=== PATIENT | female | born 1950 | race Caucasian/White ===

== ENCOUNTER → 2017-12-03 | Outpatient (CLI) | payer OTHER ==
[~2017-12-03] MED LIST: ISOVUE-370 50ML VIAL IV ONE; ROPI4TAB8 PO; ROTI1PAT10 TD; VALS80TA29 PO
== END | disposition home or self-care (01) ==
LOC: RAH 09:58
PROVIDERS: ATTEND Internal Medicine Gastroenterology
DX: K44.9 Diaphragmatic hernia without obstruction or gangrene (principal); M47.895 Other spondylosis, thoracolumbar region; R63.4 Abnormal weight loss
CPT/HCPCS: 71046; 74178; Q9967

== ENCOUNTER 2017-12-18 06:56 | Day surgery (SDC) | payer OTHER ==
[~2017-12-18] VITALS: Ht 165.1 cm; Wt 72.8 kg
[~2017-12-18 06:56] MED LIST changes: -ISOVUE-370 50ML VIAL IV ONE; -ROTI1PAT10 TD; +SODIUM CHLORIDE 0.9% 1000ML 1,000 ML IV ONE
[2017-12-18 08:04] VITALS: BP 138/77
[2017-12-18] MEDS ORDERED: PROPOFOL 10 MG/ML 20ML VIAL IV ONE (08:59)
[2017-12-18 09:15] VITALS: BP 80/45
== END 2017-12-18 09:50 | disposition home or self-care (01) ==
LOC: ENDO 06:56 → DAH 06:56 → ENDO 09:50
PROVIDERS: ATTEND Internal Medicine Gastroenterology
DX: K22.70 Barrett's esophagus without dysplasia (principal); K44.9 Diaphragmatic hernia without obstruction or gangrene; K57.30 Diverticulosis of large intestine without perforation or abscess without bleeding; D64.9 Anemia, unspecified; E07.9 Disorder of thyroid, unspecified; I10 Essential (primary) hypertension
CPT/HCPCS: 43239; 88305; 93005; A4606; J2704; J7030

== ENCOUNTER → 2018-02-12 | Outpatient (CLI) | payer OTHER ==
[~2018-02-12] MED LIST changes: -SODIUM CHLORIDE 0.9% 1000ML 1,000 ML IV ONE; -VALS80TA29 PO; +VALS80TA30 PO
[2018-02-12 10:18] LABS: BASOPHILS % (AUTO) 0.6 % (0.0-5.0); EOSINOPHILS % (AUTO) 0.9 % (0.0-8.0); HEMATOCRIT 40.2 % (36-48); LYMPHOCYTES % (AUTO) 24.1 % (21.0-51.0); MEAN CORPUSCULAR HGB CONC 33.2 g/dL (32.0-36.0); MEAN CORPUSCULAR VOLUME 90.4 fL (79-99); MONOCYTES % (AUTO) 8.6 % (3.0-13.0); NEUTROPHILS % (AUTO) 65.8 % (40.0-77.0); PLATELET COUNT (AUTO) 201 K/uL (130-400); RED BLOOD CELL COUNT(AUTO) 4.45 MIL/uL (4.00-5.50); RED CELL DISTRIBUTION WIDTH 13.5 % (11.0-15.5)
[2018-02-12 10:29] LABS: INR 0.98 (0.85-1.15); PARTIAL THROMBOPLASTIN TIME 26.8 SEC (26.3-35.5); PROTHROMBIN TIME 10.3 SEC (9.6-11.6)
[2018-02-12 10:32] LABS: ALBUMIN 3.6 g/dL (3.5-5.0); BILIRUBIN,TOTAL 0.3 mg/dL (0.2-1.0); CREATININE 1.1 mg/dL (0.5-1.5); POTASSIUM 3.6 mmol/L (3.5-5.1); TOTAL PROTEIN, SERUM 7.7 g/dL (6.0-8.3)
== END | disposition home or self-care (01) ==
LOC: RAH 09:43
PROVIDERS: ATTEND Internal Medicine
DX: Z01.811 Encounter for preprocedural respiratory examination (principal); I10 Essential (primary) hypertension; N18.2 Chronic kidney disease, stage 2 (mild); E78.2 Mixed hyperlipidemia
CPT/HCPCS: 36415; 71046; 80053; 85025; 85610; 85730

== ENCOUNTER 2018-02-19 06:28 | Day surgery (SDC) | payer OTHER ==
[2018-02-18 16:28] VITALS: BP 157/78
[~2018-02-19] VITALS: Ht 168.9 cm; Wt 72.6 kg
[2018-02-19] VITALS (14 sets, daily range): BP systolic 104–153; BP diastolic 48–95
[2018-02-19] MEDS ORDERED: LACTATED RINGERS 1000ML 1,000 ML IV ONE (07:28)
[2018-02-19] MEDS ORDERED: CLINDAMYCIN 900 MG/D5% WATER 50 ML IV ONE (07:28)
[2018-02-19] MEDS ORDERED: MIDAZOLAM HCL 1 MG/ML 2ML VIAL ONE (07:42)
[2018-02-19] MEDS ORDERED: PROPOFOL 10 MG/ML 20ML VIAL IV ONE (07:42)
[2018-02-19] MEDS ORDERED: FENTANYL CITRATE PF 50 MCG/1 ML 2ML VIAL ONE (07:42)
[2018-02-19] MEDS ORDERED: CEFAZOLIN SODIUM 1 GM VIAL IVP ONE (08:00)
[2018-02-19] MEDS ORDERED: WATER FOR INJECTION,STERILE 20 ML VIAL IJ ONE (08:00)
[2018-02-19] MEDS ORDERED: ROPIVACAINE 0.5% 5MG/ML 30ML IJ ONE (08:17)
[2018-02-19] MEDS ORDERED: EPINEPHRINE 1 MG/ML 30ML VIAL IJ ONE (09:43)
[2018-02-19] MEDS ORDERED: EPHEDRINE SULFATE 50 MG/ML AMPULE ONE (09:45)
[2018-02-19] MEDS ORDERED: ONDANSETRON HCL MDV 20ML 2 MG/ML VIAL ONE (11:55)
[2018-02-19] MEDS ORDERED: NEOSTIGMINE 5MG/5ML SYR IV ONE (11:55)
[2018-02-19] MEDS ORDERED: GLYCOPYRROLATE 0.2 MG/ML 5 ML VIAL ONE (11:55)
[2018-02-19] MEDS ORDERED: ROCURONIUM BROMIDE 10MG/1ML 5ML VL ONE (11:55)
[2018-02-19] MEDS ORDERED: DEXAMETHASONE SOD PHOSPHATE 10MG/ML 1ML VIAL ONE (11:55)
[2018-02-19] MEDS ORDERED: MEPERIDINE-PF 25 MG/ML SYG ONE (12:24)
== END 2018-02-19 15:00 | disposition home or self-care (01) ==
LOC: DAH 06:28
PROVIDERS: ATTEND Orthopaedic Surgery
DX: M75.101 Unspecified rotator cuff tear or rupture of right shoulder, not specified as traumatic (principal); M75.41 Impingement syndrome of right shoulder; M19.011 Primary osteoarthritis, right shoulder; M94.211 Chondromalacia, right shoulder; Z90.710 Acquired absence of both cervix and uterus; Z98.890 Other specified postprocedural states; Z79.899 Other long term (current) drug therapy; Z88.0 Allergy status to penicillin; Z88.8 Allergy status to other drugs, medicaments and biological substances; I10 Essential (primary) hypertension; K21.9 Gastro-esophageal reflux disease without esophagitis
CPT/HCPCS: 29824; 29826; 29827; A4565; A4649 ×5; A4930; A6204; C1763; J0171; J1100; J2175; J2250; J2704; J2710; J2795; J3010; J3490 ×4; J7030; J7120

== ENCOUNTER → 2019-02-22 | Outpatient (CLI) | payer OTHER | END | disposition home or self-care (01) | LOC: RAH 12:12 | PROVIDERS: ATTEND Internal Medicine | DX: M71.21 Synovial cyst of popliteal space [Baker], right knee (principal) | CPT/HCPCS: 93971 ==

== ENCOUNTER → 2019-03-01 | Outpatient (CLI) | payer OTHER ==
[~2019-03-01] MED LIST changes: +IOHEXOL 350 MG/ML 100ML INFUS..BTL IV ONE
== END | disposition home or self-care (01) ==
LOC: RAH 08:31
PROVIDERS: ATTEND Internal Medicine Gastroenterology
DX: K44.9 Diaphragmatic hernia without obstruction or gangrene (principal); Z90.710 Acquired absence of both cervix and uterus
CPT/HCPCS: 74178; Q9967

== ENCOUNTER → 2025-06-27 | Outpatient (CLI) | payer MEDICARE ==
[~2025-06-27] MED LIST changes: -IOHEXOL 350 MG/ML 100ML INFUS..BTL IV ONE
[2025-06-27 09:38] LABS: NUCLEATED RED BLOOD CELLS 0.0 % (0.0-0.19); PLATELET COUNT (AUTO) 184.0 K/uL (130-400); RED BLOOD CELL COUNT(AUTO) 3.96 MIL/uL (4.00-5.50); RED CELL DISTRIBUTION WIDTH 13.4 % (11.0-15.5); WHITE BLOOD COUNT (AUTO) 5.1 K/uL (4.8-10.8)
[2025-06-27 09:52] LABS: ASPARTATE AMINOTRANSFERASE 23.0 U/L (10-37); CREATININE 1.4 mg/dL (0.5-1.0); GLOMERULAR FILTR. RATE CALC 39.0 mL/min (>90); GLUCOSE,RANDOM 89.0 mg/dL (70-105); SODIUM SERUM 142.0 mmol/L (136-145); TOTAL PROTEIN, SERUM 7.6 g/dL (6.0-8.3); UREA NITROGEN, BLOOD 19.0 mg/dL (7-18)
--- NOTE | 2025-06-27 10:10 | HMCIMG ---
CHEST 2VWS REASON: PRE OP COMPARISON: Prior chest radiograph from 02/12/2018 is available. FINDINGS: Two views of the chest were obtained. Lungs are clear. Heart size is normal. There is no pulmonary vascular congestion. Mediastinum and bony thorax appear unremarkable. There is anterior cervical disc fusion with orthopedic plates seen at the edges study. There is a neurostimulator device with the leads traverse the right neck. There are tacking device is seen in the left humeral head. There is suggestion of focal mild levoscoliosis. IMPRESSION: No evidence of airspace consolidation or pulmonary venous congestion..
== END | disposition home or self-care (01) ==
LOC: RAH 08:47
PROVIDERS: ATTEND Internal Medicine
DX: Z01.818 Encounter for other preprocedural examination (principal); I13.10 Hypertensive heart and chronic kidney disease without heart failure, with stage 1 through stage 4 chronic kidney disease, or unspecified chronic kidney disease; N18.9 Chronic kidney disease, unspecified; G93.5 Compression of brain; M15.0 Primary generalized (osteo)arthritis; D50.9 Iron deficiency anemia, unspecified
CPT/HCPCS: 36415; 71046; 80053; 85027

== ENCOUNTER 2025-08-03 15:44 | Emergency (ER) | payer MEDICARE ==
[~2025-08-03] VITALS: Ht 170.2 cm; Wt 70.3 kg
[2025-08-03 16:12] LABS: IMMATURE GRANULOCYTE ABSOLUTE 0.03 K/uL (0-1); NUCLEATED RED BLOOD CELLS 0.0 % (0.0-0.19); PLATELET COUNT (AUTO) 218 K/uL (130-400); RED BLOOD CELL COUNT(AUTO) 3.66 MIL/uL (4.00-5.50); RED CELL DISTRIBUTION WIDTH 13.4 % (11.0-15.5); WHITE BLOOD COUNT (AUTO) 11.2 K/uL (4.8-10.8)
[2025-08-03 16:24] LABS: CREATININE 1.2 mg/dL (0.5-1.0); GLOMERULAR FILTR. RATE CALC 47.0 mL/min (>90); GLUCOSE,RANDOM 104.0 mg/dL (70-105); SODIUM SERUM 141.0 mmol/L (136-145); UREA NITROGEN, BLOOD 27.0 mg/dL (7-18)
--- NOTE | 2025-08-03 16:28 | EKG ---
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
[2025-08-03 16:31] LABS: CREATINE KINASE, TOTAL 158.0 U/L (21-232)
--- NOTE | 2025-08-03 16:47 | HMCIMG ---
Exam: NONCONTRAST CT BRAIN REASON: headache. COMPARISON: None. TECHNIQUE: Images are obtained from vertex to the skull base. The exam was performed without IV contrast. FINDINGS: There is normal appearing brain parenchyma. There are no focal mass lesions. There is is no evidence of intracranial hemorrhage or acute stroke. Ventricles and sulci appear normal. Posterior fossa and brainstem structures are unremarkable. Paranasal sinuses and remaining extracranial soft tissues appear normal as well.There are bilateral ventricular stimulator is seen with a judith hole bilateral frontoparietal region. IMPRESSION: 1. No acute intracranial process. CT was performed with one or more following dose reduction techniques: automated exposure control, adjustment of the mA and kv according to patient's size, or use of a iterative reconstruction technique.
--- NOTE | 2025-08-03 16:50 | HMCIMG ---
CHEST 1VW REASON: cp COMPARISON: None. FINDINGS: Prior chest radiograph from 06/27/2025 is available. There is anterior cervical disc fusion with orthopedic plates seen at the edges study. There is a neurostimulator with the leads traverse the right neck. There is a tacking device seen in the left humeral head. IMPRESSION: 1. No acute cardiac pulmonary processes and unchanged from prior study..
--- NOTE | 2025-08-03 17:02 | ERN ---
General Chief Complaint: Mechanical Fall Stated Complaint: OTHER Time Seen by MD: 15:45 Source: patient History of Present Illness Initial Comments Patient is a 75-year-old female coming in to be evaluated after she slid down from her chair was not able to get back up. Per patient she felt weak and was not able to get up from the floor. Patient did has a deep brain stimulator recently placed in his here for further evaluation. Allergies: Coded Allergies: Penicillins (Unverified Allergy, 02/15/13) aspirin (Unverified Allergy, 02/15/13) Home Meds Reported Medications Valsartan (Valsartan) 80 Mg Tablet, 80 MG PO DAILY, TAB 12/15/17 Ropinirole HCl (Requip Xl) 4 Mg Tab.er.24h, 8 MG PO HS, TAB 11/22/15 Past Medical History Past Medical History: GERD, Hypertension Past Surgical History: Other Surgical History Other: DEEP BRAIN STIMULATION ROS Dictation CONSTITUTIONAL: No chills, no fever, no weakness, no diaphoresis, no malaise. HEAD/FACE: No signs of trauma. EENT: No eye pain, no blurred vision, no tearing, no double vision, no ear pain, no ear discharge, no nose pain, no nasal congestion, no throat pain, no throat swelling, no mouth pain. RESPIRATORY: No cough, no orthopnea, no SOB, no stridor, no wheezing. CARDIOVASCULAR: No chest pain, no edema, no palpitations, no syncope. GASTROINTESTINAL/ABDOMINAL: No abdominal pain, no constipation, no diarrhea, no nausea, no vomiting. GENITOURINARY: No abnormal discharge, no dysuria, no frequent urination, no hematuria. No complaints of pain in the genitals. MUSCULOSKELETAL: No back pain, no gout, no joint pain, no joint swelling, no muscle pain, no muscle stiffness, no neck pain. INTEGUMENTARY: No change in color, no change in hair/nails, no dryness, no lesion, no lumps, no rash. NEUROLOGICAL/PSYCH: No anxiety, not depressed, no emotional problem, no headache, no numbness, no pre-existing deficit, no history of seizures, no tremors, no weakness. HEMATOLOGIC/LYMPHATIC: Not anemic, no history of blood clots, no apparent bleeding, no bruising, glands not swollen. All Systems Negative, Except as Noted. Physical Exam Physical Exam Dictation VITAL SIGNS: Reviewed. GENERAL APPEARANCE: Alert, oriented x3, no acute distress, obese. HEAD AND FACE: Non-traumatic. EYES: PERRL, pink conjunctivas, eyelid no trauma, anterior chamber clear. EARS: Pinnas intact and no signs of trauma or erythema. Ear canals clear and no discharge. TMs no erythema. NOSE: No discharge, no bleeding. OROPHARYNX: Mouth normal, teeth no caries, tongue pink. Pharynx clear, no erythema. Tonsils no exudates, no abscesses noted. Mucous membrane moist. NECK: Supple, non-tender, no thyromegaly, no masses, no JVD, no bruits. BREAST: Deferred. CHEST: No tenderness, no crepitus, no paradoxical movement, no retractions. LUNGS: Clear, well-ventilated, symmetric, no rales, no wheezing, no rhonchi, no stridor, good breath sounds bilaterally. HEART: Regular rate, regular rhythm, no murmur, no gallops. VASCULAR: No peripheral edema. ABDOMEN: Soft, positive bowel sounds, nondistended, no guarding, nontender, no rebound, no masses no hepatomegaly, no splenomegaly, no Trejo's sign, no hernias. RECTAL: Deferred. GENITAL: Deferred. NEUROLOGICAL: Normal speech, gross motor function intact, gross sensory function intact. MUSCULOSKELETAL: Neck nontender, full range of motion, back nontender, full range of motion. EXTREMITIES: Nontender, full range of motion. SKIN: Color pink, dry, no turgor, no rash, no lacerations, no abrasions, no contusions. LYMPHATICS: Deferred. Results Laboratory and Microbiology Lab and Micro Result Laboratory Tests Test 08/03/25 16:06 08/03/25 17:45 White Blood Count 11.2 K/uL (4.8-10.8) H Red Blood Count 3.66 MIL/uL (4.00-5.50) L Hemoglobin 11.4 g/dL (12.0-16.0) L Hematocrit 34.7 % (36-48) L Mean Corpuscular Volume 94.8 fL (79-99) Mean Corpuscular Hemoglobin 31.1 pg (27.0-33.0) Mean Corpuscular Hemoglobin Concent 32.9 g/dL (32.0-36.0) Red Cell Distribution Width 13.4 % (11.0-15.5) Platelet Count 218 K/uL (130-400) Mean Platelet Volume 10.2 fL (7.5-10.5) Immature Granulocyte % (Auto) 0.3 % (0-1) Neutrophils (%) (Auto) 81.1 % (40.0-77.0) H Lymphocytes (%) (Auto) 10.5 % (21.0-51.0) L Monocytes (%) (Auto) 7.3 % (3.0-13.0) Eosinophils (%) (Auto) 0.5 % (0.0-8.0) Basophils (%) (Auto) 0.3 % (0.0-5.0) Neutrophils # (Auto) 9.1 K/uL (1.8-7.7) H Lymphocytes # (Auto) 1.2 K/uL (1.0-4.8) Monocytes # (Auto) 0.8 K/uL (0.1-1.0) Eosinophils # (Auto) 0.06 K/uL (0.00-0.70) Basophils # (Auto) 0.03 K/uL (0.00-0.20) Absolute Immature Granulocyte (auto 0.03 K/uL (0-1) Nucleated Red Blood Cells 0.0 % (0.0-0.19) Sodium Level 141 mmol/L (136-145) Potassium Level 4.2 mmol/L (3.5-5.1) Chloride Level 103 mmol/L (101-111) Carbon Dioxide Level 29 mmol/L (21-32) Blood Urea Nitrogen 27 mg/dL (7-18) H Creatinine 1.2 mg/dL (0.5-1.0) H Glomerular Filtration Rate Calc 47 mL/min (>90) Random Glucose 104 mg/dL (70-105) Total Calcium 8.7 mg/dL (8.5-10.1) Magnesium Level 2.30 mg/dL (1.80-2.40) Total Creatine Kinase 158 U/L (21-232) Troponin I High Sensitivity 11 ng/L (4-50) Urine Color COLORLESS (YELLOW) Urine Appearance CLEAR (CLEAR) Urine pH 5.5 (5.0-8.0) Urine Specific [place] 1.004 (1.001-1.031) Urine Protein NEGATIVE mg/dL (NEGATIVE) Urine Glucose (UA) NEGATIVE mg/dL (NEGATIVE) Urine Ketones NEGATIVE mg/dL (NEGATIVE) Urine Occult Blood NEGATIVE (NEGATIVE) Urine Nitrate NEGATIVE (NEGATIVE) Urine Bilirubin NEGATIVE mg/dL (NEGATIVE) Urine Urobilinogen 0.2 mg/dL (0.2-1.0) Urine Leukocyte Esterase NEGATIVE Amy/uL Urine RBC 0-1 /HPF (0-1) Urine WBC 2-5 /HPF (0-1) H Urine Bacteria None /HPF (None Seen) EKG/XRAY/US/CT/MRI EKG Comment 08/03/2025 time 3:58 p.m. Ventricular rate 64 Sinus rhythm SD [address] wave elevation or depression CT Scan Comment [address] [address] IMAGING REPORT Signed PATIENT: MARYANNE HOLLIDAY MR#: [id number] : 1950 SEX: F AGE: 75 LOCATION: [facility] ORDER 55 STATUS: PRE ER REPORT#: [id number] SERVICE 54 REASON: headache ORDERING PHYSICIAN: SONIDO GARCIA MD PROCEDURE: HEAD WO - CT HEAD/BRAIN W/O CONTRAST Exam: NONCONTRAST CT BRAIN REASON: headache. COMPARISON: None. TECHNIQUE: Images are obtained from vertex to the skull base. The exam was performed without IV contrast. FINDINGS: There is normal appearing brain parenchyma. There are no focal mass lesions. There is is no evidence of intracranial hemorrhage or acute stroke. Ventricles and sulci appear normal. Posterior fossa and brainstem structures are unremarkable. Paranasal sinuses and remaining extracranial soft tissues appear normal as well.There are bilateral ventricular stimulator is seen with a judith hole bilateral frontoparietal region. IMPRESSION: 1. No acute intracranial process. CT was performed with one or more following dose reduction techniques: automated exposure control, adjustment of the mA and kv according to patient's size, or use of a iterative reconstruction technique. DICTATED BY: BENNY HOFFMAN MD DATE: 08/03/251642 ELECTRONICALLY SIGNED BY: BENNY HOFFMAN MD DATE: 08/03/251646 MDM MDM: Differential diagnosis: Generalized weakness, failure to thrive, status post deep brain stimulator Rationale: Tests considered and ordered secondary to shared decision making include: Previous outside records reviewed: Old ER visits. Risk of complication and/or morbidity or mortality of patient management: None Medications-Per medication reconciliation Need for hospitalization: Patient does not meet criteria for hospitalization. Need for emergency major/minor surgery: No Patient is a 75-year-old female coming in after she slid off her chair and states that that she could not get up due to weakness. Cardiac workup was performed no acute findings were present CT of the head was also performed no acute findings were present either. Because of her initial presentation I advise her admission would be warranted for physical therapy and further evaluation patient refused stated that she would rather go home I did go over the pros and cons about that decision she refused eyelid family members know about her decision to leave they did advise me if anything should resurface or patient she would need immediate medical care that she will be followed up with the nearest ER or back here. ED Course Orders Procedure Category Date Status Time Cbc With Differential LAB 08/03/25 Complete 15:55 Chest 1vw RAD 08/03/25 Resulted 15:55 12 Lead Ekg Tracing- EKG 08/03/25 Complete Technical 15:55 Magnesium LAB 08/03/25 Complete 15:55 Creatine Kinase, Total LAB 08/03/25 Complete 15:55 Troponin I High LAB 08/03/25 Complete Sensitivity 15:55 Urinalysis Profile LAB 08/03/25 Complete 15:55 Basic Metabolic Panel LAB 08/03/25 Complete 15:55 Ct Head/Brain W/O CT 08/03/25 Resulted Contrast 15:55 Vital Signs Date Time Temp Pulse Resp B/P (MAP) Pulse Ox O2 Delivery O2 Flow Rate FiO2 08/03/25 16:52 98.4 72 18 119/60 96 Room Air* 0 21 08/03/25 16:01 98.4 74 18 114/58 96 Room Air* 0 21 08/03/25 15:52 98.4 84 18 130/64 96 DX & DISP Disposition: AMA Departure Impression: Primary Impression: Failure to thrive Additional Impression: Generalized weakness Condition: Against Medical Advice Additional Instructions: I did advise patient that due to the weakness he presented with on admission is warranted but patient refused even after thorough conversations with her she states she does not want to stay and we will follow up with the PCP in the a.m.. Referrals: SABRINA PECK MD (PCP) SONIDO GARCIA MD Aug 03, 2025 17:02
[2025-08-03 18:02] LABS: APPEARANCE,URINE CLEAR (CLEAR); GLUCOSE, URINE (UA) NEGATIVE (NEGATIVE); LEUKOCYTE ESTERASE ,URINE NEGATIVE Leu/uL (NEGATIVE); NITRATE,URINE NEGATIVE (NEGATIVE); OCCULT BLOOD,URINE NEGATIVE (NEGATIVE)
[2025-08-03 18:04] LABS: ADD UA MICROSCOPIC YES
--- NOTE | 2025-08-03 18:28 | NUR ---
KISHOR MCDANIEL [phone]
--- NOTE | 2025-08-03 18:35 | NUR ---
DR GARCIA CONTACTED PT SON AND EXPLAINED PT REFUSAL TO STAY
[2025-08-03 19:07] VITALS: BP 115/65; PULSE 70; RESP 18; TEMP 98.4; O2SAT 96
--- NOTE | 2025-08-03 19:12 | NUR ---
AMA FORM SIGNED BY PATIENT PT ETHEL
== END 2025-08-03 19:13 | disposition left against medical advice (07) ==
LOC: EDH 15:44
DX: R62.7 Adult failure to thrive (principal); R53.1 Weakness; I10 Essential (primary) hypertension; Z79.899 Other long term (current) drug therapy; Z88.0 Allergy status to penicillin; Z88.6 Allergy status to analgesic agent
CPT/HCPCS: 36415; 70450; 71045; 80048; 81001; 82550; 83735; 84484; 85025; 93005; 99285